=== PATIENT | female | born 1985 | race Two or more races ===

== ENCOUNTER 2017-06-08 07:57 | Day surgery (SDC) | payer OTHER ==
[2017-06-08] MEDS: NS 1,000 ML IV (08:00)
[2017-06-08] MEDS ORDERED: LIDOCAINE 2% INJ 100 MG/5 ML SDV (FOR ANES.) As Ordered (09:42)
[2017-06-08] MEDS ORDERED: PROPOFOL 200 MG/20 ML VIAL As Ordered (09:42)
== END 2017-06-08 09:43 | disposition home or self-care (01) ==
LOC: M OPP 07:57
DX: R13.10 Dysphagia, unspecified (principal); K20.0 Eosinophilic esophagitis; K22.8 Other specified diseases of esophagus; K21.9 Gastro-esophageal reflux disease without esophagitis; L30.9 Dermatitis, unspecified; F41.9 Anxiety disorder, unspecified; G43.909 Migraine, unspecified, not intractable, without status migrainosus; Z80.0 Family history of malignant neoplasm of digestive organs; Z79.899 Other long term (current) drug therapy
CPT/HCPCS: 43235

== ENCOUNTER → 2017-06-11 | Outpatient (REF) | payer OTHER | LOC: M SFHCLERA 11:15 | DX: R50.9 Fever, unspecified (principal) ==

== ENCOUNTER 2017-11-30 13:26 | Day surgery (SDC) | payer OTHER ==
[~2017-11-30 13:26] MED LIST: PROPOFOL 200 MG/20 ML VIAL As Ordered
[2017-11-30] MEDS: NS 1,000 ML IV (14:00)
== END 2017-11-30 16:16 | disposition home or self-care (01) ==
LOC: M OPP 13:26
DX: R13.10 Dysphagia, unspecified (principal); K21.9 Gastro-esophageal reflux disease without esophagitis; K20.0 Eosinophilic esophagitis; K22.8 Other specified diseases of esophagus; K29.70 Gastritis, unspecified, without bleeding; K31.7 Polyp of stomach and duodenum; L30.9 Dermatitis, unspecified; F41.9 Anxiety disorder, unspecified; G43.909 Migraine, unspecified, not intractable, without status migrainosus; G47.00 Insomnia, unspecified; Z79.899 Other long term (current) drug therapy; Z80.0 Family history of malignant neoplasm of digestive organs
CPT/HCPCS: 43239